=== PATIENT | female | born 1995 | race Caucasian/White ===

== ENCOUNTER 2017-01-26 15:16 | Emergency (ER) | payer MEDICAID, OTHER ==
[~2017-01-26 15:16] MED LIST: FERR325T72 PO; MEDR4PAK PO; PREN1CAP30 PO
--- NOTE | 2017-01-26 16:29 | PD ---
HPI Chief Complaint ctx Date Seen: Jan 26, 2017 Travel History International Travel<30 Days: No Contact w/Intl Traveler<30Days: No Known Affected Area: No History of Present Illness HPI 22y/o , IUP at 32.4 PNC complicated by h/o cholestasis of Patient presents c/o onset of ctx at 9am this morning. She reports she is feeling cramping and tightening about every 10 minutes. There are no aggravating or alleviating factors. There are no attempted treatments. She reports that it is normal for her to have some "tightening" throughout the day. She reports she had intercourse this morning. She denies any LOF or VB. She reports good FM. She has no other ob complaints today. Para: 2 : 3 History Past Medical History Narrative Medical Cholestasis of with each Obstetric History Obstetric History Denies STDs or abnl PAPs FT x2 Past Surgical History Surgical History: No Previous Surgery Family History Family History: Negative Social History Alcohol Use: No Tobacco Use: No Substance Abuse: No Allergies-Medications (Allergen,Severity, Reaction): Coded Allergies: No Known Allergies (Unverified , 01/23/17) Home Meds Active Scripts Methylprednisolone Dosepak (Medrol Dosepak)4 Mg Dspk4 Mg PO DIRECTED #1 DSPK Ref 0 Per Pharmacist direction Prov:Alpa Dawkins CNM [facility] 01/17/17 Ferrous Gluconate 325 Mg [id number] Mg PO DAILY #30 TAB Ref 3 Prov:Alpa Dawkins CNM [facility] 12/27/16 Without A W/Fe Fum-Fe (Provida Dha 16-16-1.25-110 mg)1 Cap Cap1 Tab PO DAILY #30 BOTTLE Ref 11 Prov:Nicky Granger [facility] 09/24/16 Discontinued Scripts Terconazole Vaginal Cream (Terazol 3 Vaginal Cream)0.8 % Cream1 Appl VAGINAL HS #20 GM Ref 0 1 applicatorful intravaginally x 3 nights Prov:Alpa Dawkins CNM [facility] 01/17/17 Review of Systems Except as stated in HPI: all other systems reviewed are Neg Physical Exam Narrative GENERAL: Well-nourished, well-developed patient. A&Ox3, NAD SKIN: Warm and dry. HEAD: Normocephalic and atraumatic. EYES: No scleral icterus. No injection or drainage. ENT: No nasal drainage noted. Mucous membranes pink. Airway patent. NECK: Supple, trachea midline. No JVD. CARDIOVASCULAR: Regular rate and rhythm without murmurs, gallops, or rubs. RESPIRATORY: Breath sounds equal bilaterally. No accessory muscle use. BREASTS: Deferred ABDOMEN/GI: Abdomen soft, non-tender, bowel sounds present, no rebound, no guarding Gravid GENITOURINARY: External Genitalia: intact and normal in appearance BUS glands: nl Cervix: closed, no cervical/vaginal masses, normal vaginal rugae Dilatation:closed Effacement: thick Station: high, posterior Membranes: [intact Uterine Contractions: initially frequent ctx but only occasionally noted after po and IV hydration. FHT's: Category: 1 Baseline: 130s Reactive:reactive Variability: moderate Decels: good accels, no decels EXTREMITIES: No cyanosis or edema. BACK: Nontender without obvious deformity. MS grossly normal ROM, gait, muscle strength Psych normal memory/affect NEUROLOGICAL: Awake and alert. Motor and sensory grossly within normal limits. Five out of 5 muscle strength in all muscle groups. Normal speech. Data Data Vital Signs Reviewed: Yes Orders Vital Signs (Adult) .ON ADMISSION (01/26/17 16:27) ^ Labor Status (01/26/17 16:27) Urinalysis - C+S If Indicated (01/26/17 16:27) Dext 5%-Nacl 0.45% 1000 Ml Inj (D5w-1/2 (01/26/17 16:27) MDM Plan A/P: 22y/o 1. IUP at 32.4 2. Cholestasis of : continue medication management as per primary Ob 3. ctx: no evidence of PRL, cervix closed/thick, unable to send FFN due to recent intercourse. Encourage good hydration. Strict PTL precatuions. 4. Possible UTI: urine culture pending, Rx macrobid 100mg BID for bacturia. Encourage good hydration. 5. wellbeing: reassuring testing with reactive NST. FHR reassuring and appropriate for gestational age. FKC daily. 6. F/U with primary Ob in 2-3d or sooner if needed Diagnosis Diagnosis: Primary Impression: 32 weeks gestation of Additional Impressions: UTI (urinary tract infection) Qualified Code: N39.0 - Urinary tract infection without hematuria, site unspecified False labor before 37 completed weeks of gestation during in third trimester, antepartum Patient Instructions: Movement (ED), Urinary Tract Infection in (ED), General Instructions, Labor (ED) Additional Instructions: Rx macrobid 100mg BID, f/u with primary OB in 2-3d or sooner if needed. call for results of urine culture. strict PTL precautions. [facility] daily. Nicky Kline MD Jan 26, 2017 16:29
--- NOTE | 2017-01-26 16:33 | PD.LABORPN ---
Subjective Subjective NST report Indications: IUP at 32.4, cholestasis of , abdominal pain Variability: moderate Other: good accels, no decels Reactive: yes Final dx: IUP at 32.4, cholestasis of , false labor, possible UTI, false labor F/U: as clinically indicated Nicky Kline MD Jan 26, 2017 16:32 Cervix: [-] Dilatation: [-] Effacement: [-] Station: [-] Presentation: [-] Membranes: [intact or ruptured] Uterine Contractions: [-] FHT's: Category: [-] Baseline: [-] Reactive: [-] Variability: [-] Decels: [-] Nicky Kline MD Jan 26, 2017 16:32 Nicky Kline MD Jan 26, 2017 16:32
[2017-01-26 16:42] LABS: BACTERIA, URINE RARE /hpf; BLOOD, URINE NEG (NEG); COMMENT (UR) CULTURE INDICATED; CULTURE IF INDICATED CULTURE INDICATED; GLUCOSE,URINE NEG (NEG); KETONE, URINE NEG (NEG); MUCUS URINE FEW /lpf (OCC); NITRITE,URINE NEG (NEG); PH, URINE 6.5 (5.0-8.5); SQUAMOUS EPITHELIAL CELL URINE 2 /hpf (0-5); URINE COLOR YELLOW (YELLW/STRAW)
[2017-01-26] MEDS ORDERED: DEXT 5%-NACL 0.45% 1000 ML INJ 1,000 ML IV SCH (17:00)
[2017-02-06] MEDS ORDERED: TERC.4%V VAGINAL (16:30)
[2017-02-20] MEDS ORDERED: SE-NCHW CHEW (09:56)
== END 2017-01-26 17:46 | disposition home or self-care (01) ==
LOC: HOBED 15:16
DX: O23.43 Unspecified infection of urinary tract in pregnancy, third trimester (principal); Z3A.32 32 weeks gestation of pregnancy
CPT/HCPCS: 59025; 81001; 87086; 96360

== ENCOUNTER 2017-02-04 11:57 | Emergency (ER) | payer OTHER ==
[~2017-02-04] VITALS: Ht 162.6 cm; Wt 76.2 kg
--- NOTE | 2017-02-04 13:14 | PD ---
HPI Chief Complaint Decreased movement, contractions Date Seen: Feb 04, 2017 (Shaye Puckett MD R1) Travel History International Travel<30 Days: No Contact w/Intl Traveler<30Days: No Known Affected Area: No (Shaye Puckett MD) History of Present Illness HPI 22 at 33/6 weeks gestation presents to the [facility] ED with a chief complaint of decreased movement. Pt states that she did not feel her baby move much this morning and when she [facility] to the [facility], her [employer] INSPECTOR noticed decreased movements on the monitor. Her is complicated by cholestasis and she is not on any medications. She gets weekly visits at the clinic. Pt denies loss of fluid and vaginal bleeding, but endorses pain and burning with urination. She was recently diagnosed with a UTI and was treated with Macrobid with the last dose today. However, her [employer]EN[employer] INSPECTOR diagnosed her with a yeast infection and gave her a vaginal cream - she continues to have itching. (Shaye Puckett MD) History Past Medical History Medical History: Denies Significant Hx (Shaye Puckett MD) Obstetric History Obstetric History -2 Fullterm vaginal deliveries, first at 39 weeks and second at 38 weeks (Shaye Puckett MD) Past Surgical History Surgical History: No Previous Surgery (Shaye Puckett MD) Family History Family History: Negative (Shaye Puckett MD) Social History Alcohol Use: No Tobacco Use: No Substance Abuse: No (Shaye Puckett MD) Allergies-Medications (Allergen,Severity, Reaction): Coded Allergies: No Known Allergies (Unverified , 02/04/17) Home Meds Active Scripts Terconazole Vaginal Supp 80 Mg Supp80 Mg VAGINAL HS #3 SUPP Ref 0 Prov:Shaye Puckett MD 02/04/17 Ursodiol 300 Mg [id number] Mg PO TID #90 CAP Ref 0 Prov:Shaye Puckett MD 02/04/17 Discontinued Scripts Ursodiol 300 Mg [id number] Mg PO TID #90 CAP Ref 0 Prov:Shaye Puckett MD 02/04/17 Review of Systems General / Constitutional: No: Fever, Chills Gastrointestinal: No: Nausea, Vomiting, Diarrhea Genitourinary: Dysuria Skin: Itching (Shaye Puckett MD R1) Physical Exam Narrative GENERAL: Well-nourished, well-developed patient. SKIN: Warm and dry. HEAD: Normocephalic and atraumatic. EYES: No scleral icterus. No injection or drainage. ENT: No nasal drainage noted. Mucous membranes pink. Airway patent. NECK: Supple, trachea midline. No JVD. CARDIOVASCULAR: Regular rate and rhythm without murmurs, gallops, or rubs. RESPIRATORY: Breath sounds equal bilaterally. No accessory muscle use. BREASTS: Bilateral exam showed no masses , no retractions, no nipple discharge. ABDOMEN/GI: Abdomen soft, non-tender, bowel sounds present, no rebound, no guarding GENITOURINARY: External Genitalia: intact and normal in appearance Cervix: Posterior Dilatation: 1-2cm Effacement: 0% Station: -3 Presentation: Cephalic Membranes: intact Uterine Contractions: present, minimal FHT's: Category: I Baseline: 155 Reactive: up to 170 Variability: Moderate Decels: 1 variable decel EXTREMITIES: No cyanosis or edema. BACK: Nontender without obvious deformity. No CVA tenderness. NEUROLOGICAL: Awake and alert. Motor and sensory grossly within normal limits. Five out of 5 muscle strength in all muscle groups. Normal speech. (EkShaye davis MD R1) Data Data Orders Vital Signs (Adult) .ON ADMISSION (02/04/17 12:44) ^ Labor Status (02/04/17 12:44) Urinalysis - C+S If Indicated (02/04/17 12:44) ^ Non Stress Test (02/04/17 12:44) ^ Hydration (02/04/17 12:44) Us Ob Bpp Wo Nst (02/04/17 12:44) (Shaye Puckett MD R1) [facility] Medical Record Reviewed: Yes Interpretation(s) 22 at 33/6 weeks gestation, pregancy complicated by acute cholestasis, presents with chief complaint of decreased movement Plan Intrauterine - tracing category I, one variable decel noted -Will send to OB diagnostics for BPP - BPP 06/03 Labor -Contractions noted on tocometer, irregular frequency -Cervical exam: 1-2cm, 0%, -3 -Will obtain Fribronectin - negative -Oral hydration Dysuria/Vaginitis -Recent history of UTI treated with macrobid -Urinalysis performed - shows moderate leukocytes, 14 WBC, and many bacteria, but with 21 squamous cells - may not be a good sample -Will wait on culture since pt has been treated with macrobid -Wet prep profile - negative Acute cholestasis -Will start Ursodiol 300mg TID ED Summary: BPP /, normal ultrasound, Pt need to have NST twice weekly and BPP once weekly with NST. Contractions minimal, irregular, and infrequent - not in active labor. Urinalysis showed moderate leukocytes, 14 WBC, and many bacteria, but with 21 squamous cells, may not be a good sample. Will defer treatment until urine culture results. Wet prep was negative. Pt was previously treated with a vaginal cream. Will recommend continued treatment. Start Ursodiol 300mg TID for cholestasis of . (Shaye Puckett MD R1) Diagnosis Diagnosis: Primary Impression: Decreased movement during in third trimester, antepartum Additional Impression: contractions Disposition: DISCHARGE HOME Condition: Stable Scripts Terconazole Vaginal Supp 80 Mg Supp80 Mg VAGINAL HS #3 SUPP Ref 0 Prov:Shaye Puckett MD R1 02/04/17 Ursodiol 300 Mg [id number] Mg PO TID #90 CAP Ref 0 Prov:Shaye Puckett MD R1 02/04/17 Collaborating MD Comments Discussed care with patient in detail. She will need twice weekly testing due to cholestasis with induction at 38 weeks gestation. Patient was started on BRODY today as she continues to have severe pruritis. (Xena Clemons MD) Shaye Puckett MD R1 Feb 04, 2017 13:14 Xena Clemons MD Feb 04, 2017 18:15
[2017-02-04] MEDS ORDERED: URSO300C2 PO ×2 (13:26→16:32)
[2017-02-04 14:05] LABS: BACTERIA, URINE MANY /hpf; BLOOD, URINE NEG (NEG); GLUCOSE,URINE NEG (NEG); HYALINE CAST, URINE 1 /lpf (RARE); KETONE, URINE NEG (NEG); MUCUS URINE FEW /lpf (OCC); NITRITE,URINE NEG (NEG); SQUAMOUS EPITHELIAL CELL URINE 21 /hpf (0-5); TRANSITIONAL EPI CELLS, URINE <1 /hpf; URINE COLOR YELLOW (YELLW/STRAW)
[2017-02-04 14:10] LABS: COMMENT (UR) CULTURE INDICATED; CULTURE IF INDICATED CULTURE INDICATED
[2017-02-04] MEDS ORDERED: LACTATED RINGER'S 1000 ML INJ 1,000 ML IV SCH (15:00)
[2017-02-04 16:04] VITALS: BP 99/58; PULSE 79
[2017-02-04 16:06] VITALS: BP 104/50; PULSE 89
[2017-02-04 16:11] VITALS: RESP 18; TEMP 97.7
[2017-02-04] MEDS ORDERED: TERC1SUP VAGINAL (18:00)
[2017-02-06] MEDS ORDERED: TERC.4%V VAGINAL (16:30)
[2017-02-20] MEDS ORDERED: SE-NCHW CHEW (09:56)
== END 2017-02-04 17:27 | disposition home or self-care (01) ==
LOC: HOBED 11:57
DX: O36.8130 Decreased fetal movements, third trimester, not applicable or unspecified (principal); O47.03 False labor before 37 completed weeks of gestation, third trimester; O26.613 Liver and biliary tract disorders in pregnancy, third trimester; K83.1 Obstruction of bile duct; O23.43 Unspecified infection of urinary tract in pregnancy, third trimester; B96.89 Other specified bacterial agents as the cause of diseases classified elsewhere; Z3A.33 33 weeks gestation of pregnancy
CPT/HCPCS: 59025; 76816; 76819; 81001; 82731; 87086; 87210; 96360; 96361

== ENCOUNTER 2017-03-02 19:42 | Inpatient (IN) | payer OTHER ==
[~2017-03-02] VITALS: Ht 162.6 cm; Wt 77.1 kg
[~2017-03-02 19:42] MED LIST changes: -FERR325T72 PO; -MEDR4PAK PO; -PREN1CAP30 PO; +SE-NCHW CHEW; +URSO300C2 PO
--- NOTE | 2017-03-02 21:19 | HHI.HP ---
HPI Chief Complaint Scheduled Induction Date Seen: March 02, 2017 Time Seen: 20:45 Travel History International Travel<30 Days: No Contact w/Intl Traveler<30Days: No Known Affected Area: No History of Present Illness HPI 22 y/o , IUP at 37.0 records reviewed and PNC complicated by: cholestasis of , [place] Patient presents for scheduled IOL as recommended by MFM at 37w. She reports good FM. She denies any LOF or VB. She denies any regular or painful ctx. She has no other complaints tonight except she is requesting to eat as she was "too nervous" to eat prior to coming to the hospital. Para: 2 : 3 Miscarriage: 0 : 0 History Past Medical History Narrative Medical Cholestasis of with this and prior Obstetric History Obstetric History FT x2 Menarche at 12 Menses q month menses last 6d Denies h/o abnl PAPs or STD Past Surgical History Surgical History: No Previous Surgery Family History Narrative Family History Epilepsy (father) Social History Alcohol Use: No Tobacco Use: No Substance Abuse: No Allergies-Medications (Allergen,Severity, Reaction): Coded Allergies: No Known Allergies (Unverified , 03/02/17) Home Meds Active Scripts Ursodiol 300 Mg [id number] Mg PO TID #90 CAP Ref 0 Prov:Shaye Puckett MD R1 02/04/17 Reported Medications Vit W/ Ferrous Fumara Chew (Se- 19 29-1 mg Chew)1 Chew1 Tab CHEW DAILY Ref 0 02/20/17 Review of Systems General / Constitutional: No: Fever, Weight Gain, Weight Loss, Chills, Other Eyes: No: Diploplia, Blurred Vision, Visual changes, Pain, Photophobia, Other HENT: No: Headaches, Vertigo, Dental Difficulties, Lightheadedness, Other Cardiovascular: No: Irregular Rhythm, Chest Pain or Discomfort, Palpitations, Tachycardia, Syncope, Varicosities, Edema, Cyanosis, Other Respiratory: No: Cough, Short of Breath, Wheezing, Other Gastrointestinal: No: Nausea, Vomiting, Diarrhea, Abdominal Pain, Hematemesis, Hematochezia, Constipation, Changes in Bowel Habits, Indigestion, Loss of Appetite, Other Genitourinary: No: Urgency, Frequency, Dysuria, Nocturia, Hematuria, Decreased Urinary Output, Oliguria, Hesitancy, Dribbling, Incontinence, Pelvic Pain, Dyspareunia, Discharge, Menorrhagia, Vaginal Bleeding, Other Musculoskeletal: No: Limited ROM, Weakness, Cramping, Edema, Pain, Other Skin: No Rash, Itching, No Dryness, No Lumps, No Change in Pigmentation, No Change in Nails, No Alopecia, No Lesions, No Breast Lumps, No Breast Tenderness , No Breast Swelling, No Other Neurologic: No: Weakness, Dizziness, Syncope, Focal Abnormalities, Coordination Problem, Headache, Slurred Speech, Seizures, Other Psychiatric: No: Anxiety, Depression, Suicidal Ideations, Disorder of Thought, Mood Disorder, Substance Abuse, Homicidal Ideation, Other Endocrine: No: Heat Intolerance, Cold Intolerance, Polydipsia, Polyuria, Other Hematologic/Lymphatic: No Easy Bruising, No Lymph Node Enlargement, No Other Physical Exam VSS AF Narrative GENERAL: Well-nourished, well-developed patient. SKIN: Warm and dry. HEAD: Normocephalic and atraumatic. EYES: No scleral icterus. No injection or drainage. ENT: No nasal drainage noted. Mucous membranes pink. Airway patent. NECK: Supple, trachea midline. No JVD. CARDIOVASCULAR: Regular rate and rhythm without murmurs, gallops, or rubs. RESPIRATORY: Breath sounds equal bilaterally. No accessory muscle use. BREASTS: Bilateral exam showed no masses , no retractions, no nipple discharge. ABDOMEN/GI: Abdomen soft, non-tender, bowel sounds present, no rebound, no guarding Gravid GENITOURINARY: External Genitalia: intact and normal in appearance BUS glands: normal Cervix: no cervical/vaginal masses noted Dilatation: 1-2 Effacement: 25% Station: -3 Presentation: posterior. Presentation confirmed cephalic on US Membranes: [intact Uterine Contractions: [-] FHT's: Category: 1 Baseline: 140s Reactive: yes Variability: [moderate LTV-] Decels: no decels, good accels EXTREMITIES: No cyanosis or edema. BACK: Nontender without obvious deformity. No CVA tenderness. NEUROLOGICAL: Awake and alert. Motor and sensory grossly within normal limits. Five out of 5 muscle strength in all muscle groups. Normal speech. MS: grossly normal ROM, gait, muscle strength Psych grossly normal memory/affect Data Data Vital Signs Reviewed: Yes Assessment/Plan Assessment and Plan A/P: 22y/o 1. IUP at 37.0 2. Cholestasis of : admit for scheduled IOL at term as per FMFM. Discussed RBA of IOL including but not limited to increased risk of C/S, other complications. Discussed risks of , risks/indications of C/S including but not limited to pain, infection, bleeding, injury to other organs (bladder, bowels, nerves, vessels) and baby, repeat operation, hysterectomy (rare), wound infection/breakdown, and other complications. All questions answered, consent signed. Discussed with patient our goal is a healthy and mother and will reserve C/S for maternal or indications. Discussed in brief methods of IOL. Patietn requested a meal, so will delay start of IOL until after meal. 3. Sikh: lengthy nonconfrontational discussion with patient and about blood transfusions and risks of refusal, including in the event a life-saving transfusion is needed. Patient stated she would rather than have a blood transfusion, even for life-saving purposes 4. GBS neg 5. wellbeing: reassuring testing, FHR appropriate and reassuring for gestational age, continue EFM. 6. O+/RI 7. Other labs reviewed and neg (HIV, HbsAG, GC/Chlam, RPR), 1h 114 8. Patient notified of participation in [employer] and compensation if neurological injury related to . Nicky Kline MD March 02, 2017 21:19
[2017-03-02] MEDS ORDERED: LACTATED RINGER'S 1000 ML INJ 1,000 ML IV PRN (21:33)
[2017-03-02] MEDS ORDERED: LIDOCAINE HCL 1% 50 ML VIAL INFIL PRN (21:45)
[2017-03-02] MEDS ORDERED: LIDOCAINE HCL 1% 50 ML VIAL I-DERMAL PRN (21:45)
[2017-03-02] MEDS ORDERED: CITRIC ACID-SODIUM CITRATE LIQ 30 ML UDC PO SCH (21:45)
[2017-03-02] MEDS ORDERED: MINERAL OIL 10 ML VIAL TOPICAL PRN (21:45)
[2017-03-02] MEDS ORDERED: SODIUM CHLORID 0.9% 500 ML INJ 500 ML IV PRN (21:45)
[2017-03-02] MEDS ORDERED: OXYTOCIN 30 UNITS-500ML PREMIX 500 ML IV ONE (21:45)
[2017-03-02 21:46] LABS: AUTOMATED NEUTROPHIL # 3.6 TH/MM3 (1.8-7.7); BASOPHIL % 0.5 % (0.0-2.0); EOSINOPHIL % 0.1 % (0.0-4.0); HEMATOCRIT 29.6 % (35.0-46.0); HEMO FLAGS DIFF FINAL; LYMPH % 34.2 % (9.0-44.0); LYMPHOCYTE # 2.3 TH/MM3 (1.0-4.8); MEAN CELL VOLUME 86.3 FL (80.0-100.0); MEAN CORPUSCULAR HEMOGLOBIN 28.4 PG (27.0-34.0); MEAN CORPUSCULAR HGB CONC 32.9 % (32.0-36.0); MONO % 10.7 % (0.0-8.0); NEUT % 54.5 % (16.0-70.0); PLATELET COUNT 151 TH/MM3 (150-450); RED BLOOD COUNT 3.43 MIL/MM3 (4.00-5.30); WHITE BLOOD COUNT 6.7 TH/MM3 (4.0-11.0)
[2017-03-02 21:51] LABS: BLOOD, URINE NEG (NEG); COMMENT (UR) CULT NOT INDICATED; CULTURE IF INDICATED CULT NOT INDICATED; GLUCOSE,URINE NEG (NEG); HYALINE CAST, URINE 1 /lpf (RARE); KETONE, URINE NEG (NEG); MUCUS URINE FEW /lpf (OCC); NITRITE,URINE NEG (NEG); PH, URINE 6.5 (5.0-8.5); SQUAMOUS EPITHELIAL CELL URINE 4 /hpf (0-5); URINE COLOR LIGHT-YELLOW (YELLW/STRAW)
[2017-03-02] MEDS ORDERED: SODIUM CHLOR 0.9% 1000 ML INJ 1,000 ML IV PRN (21:53)
[2017-03-02 22:15] VITALS: RESP 18
[2017-03-02 22:20] VITALS: BP 122/69; PULSE 88
[2017-03-02 22:21] LABS: AMPHETAMINE, URINE NEG (NEG); BARBITURATES, URINE NEG (NEG); COCAINE, URINE NEG (NEG)
[2017-03-02 22:30] VITALS: TEMP 98
[2017-03-02] MEDS ORDERED: SODIUM CHLOR 0.9% 1000 ML INJ 1,000 ML OTHER PRN (23:21)
[2017-03-02] MEDS ORDERED: MISOPROSTOL 25 MCG SUPP VAGINAL ONE (23:30)
[2017-03-02] MEDS ORDERED: OXYTOCIN 30 UNITS-500ML PREMIX 500 ML IV SCH (23:30)
[2017-03-03] VITALS (49 sets, daily range): BP systolic 98–131; BP diastolic 40–90; PULSE 16–230; RESP 16–18; TEMP 97.7–98.6; O2SAT 99–100
[2017-03-03] MEDS ORDERED: ONDANSETRON HCL 4 MG/2 ML VIAL IV PUSH PRN (01:15)
[2017-03-03] MEDS ORDERED: ZOLPIDEM TARTRATE 5 MG TAB PO PRN ×2 (01:15→14:45)
[2017-03-03] MEDS ORDERED: hydrOXYzine PAMOATE 25 MG CAP PO PRN (01:30)
[2017-03-03] MEDS: LACTATED RINGER'S 1000 ML INJ 1,000 ML IV SCH ×2 (02:00→05:36)
[2017-03-03] MEDS ORDERED: MISOPROSTOL 25 MCG SUPP VAGINAL PRN (03:30)
--- NOTE | 2017-03-03 07:01 | PD.LABORPN ---
Subjective Subjective Ms. Plata reports that she is doing well right now without complaints. Per nursing documentation: Patient with occasional variable decelerations at ~ 0322; patient turned to LL position with improvement in tracing Cyotec 25mcg placed at 0202 and 0628. Objective Vital Signs Vital Signs Date Time Temp Pulse Resp B/P Pulse Ox O2 Delivery O2 Flow Rate FiO2 03/03/17 06:36 18 03/03/17 06:32 75 119/68 03/03/17 05:37 98.0 18 03/03/17 05:36 84 112/68 03/03/17 02:10 98.2 03/03/17 02:06 18 03/03/17 02:05 106/56 03/03/17 02:05 79 03/03/17 00:43 98.6 106 18 116/90 Objective Pelvic Exam: (Exam 0610 per nursing staff) Cervix: Dilatation: 1-2cm Effacement: 20% Station: -2 Membranes: Intact Uterine Contractions: q3 minutes FHT's: Category: 1 Baseline: 130 Reactive: Y Variability: Mod Decels: None Assessment/Plan Assessment and Plan 22y/o at 37 weeks GA with PMH Cholestasis, GBS negative. Regarding post- management- refuses blood products. -Continue to monitor EFM -Continue cervical ripening with Cytotec -IOL Don Morales MD R2 March 03, 2017 07:01
[2017-03-03] MEDS ORDERED: SODIUM CHLORIDE 0.9% FLUSH 10 ML FLUSH IV FLUSH SCH ×2 (09:00→21:00)
--- NOTE | 2017-03-03 09:26 | PD.LABORPN ---
Subjective Subjective OBHG S": patient reports increased ctx O: VSS AF FHT: 120s, moderate LTV, good accels, no decels [place]: difficult to assess SVE: 4/80/-2 A/P: 1. IUP at 37.1 2. IOL for cholestasis of : s/p cytotec x2, will start oxytocin as appropriate 3. GBS neg 4. Anemia: Hgb 9.7, refuses life saving blood transfusion 5. FHR reassuring, continue EFM Objective Vital Signs Vital Signs Date Time Temp Pulse Resp B/P Pulse Ox O2 Delivery O2 Flow Rate FiO2 03/03/17 09:05 77 03/03/17 09:02 230 18 114/75 03/03/17 08:55 100 03/03/17 08:50 100 03/03/17 08:45 100 03/03/17 08:40 82 03/03/17 08:35 77 03/03/17 08:30 77 03/03/17 08:22 92 102/40 03/03/17 08:20 18 03/03/17 07:12 97.7 16 03/03/17 07:10 80 113/77 03/03/17 06:36 18 03/03/17 06:32 75 119/68 03/03/17 05:37 98.0 18 03/03/17 05:36 84 112/68 03/03/17 02:10 98.2 03/03/17 02:06 18 03/03/17 02:05 106/56 03/03/17 02:05 79 Objective Pelvic Exam: Cervix: [-] Dilatation: [-] Effacement: [-] Station: [-] Presentation: [-] Membranes: [intact or ruptured] Uterine Contractions: [-] FHT's: Category: [-] Baseline: [-] Reactive: [-] Variability: [-] Decels: [-] Nicky Kline MD March 03, 2017 09:26
[2017-03-03 10:26] LABS: ALKALINE PHOSPHATASE 257 U/L (45-117); ALT (GPT) 16 U/L (10-53); ANION GAP 11 MEQ/L (5-15); AST (GOT) 16 U/L (15-37); BICARBONATE 22.1 MEQ/L (21.0-32.0); BLOOD UREA NITROGEN 8 MG/DL (7-18); CHLORIDE 105 MEQ/L (98-107); GLOMERULAR FILTRATION RATE 103 ML/MIN (>89); POTASSIUM 3.8 MEQ/L (3.5-5.1); SODIUM (NA) 138 MEQ/L (136-145); TOTAL BILIRUBIN ADULT 0.2 MG/DL (0.2-1.0)
[2017-03-03] MEDS ORDERED: MISOPROSTOL 200 MCG TAB ONE (10:30)
--- NOTE | 2017-03-03 14:28 | PD.OB.DELI ---
Delivery Date: March 03, 2017 Anesthesia: None Episiotomy: None Vaginal Delivery: Normal Presentation: Occiput anterior Nuchal Cord: x1 Delayed cord clamping (45 sec): Yes : Female One Minute : 8 Five Minute : 9 Weight: 3045g Placenta: Spontaneous delivery, Intact, 3 vessel cord Laceration: No lacerations Mark Lal MD R1 March 03, 2017 14:28
[2017-03-03] MEDS ORDERED: KETOROLAC TROMETHAMINE 60 MG/2 ML (IM) VIAL IM ONE (14:40)
[2017-03-03] MEDS ORDERED: WITCH HAZEL 50%/GLYCERIN 12.5% 40 PAD JAR TOPICAL PRN (14:45)
[2017-03-03] MEDS ORDERED: DOCUSATE SODIUM 50 MG/SENNA 8.6 MG TAB PO PRN (14:45)
[2017-03-03] MEDS ORDERED: oxyCODONE/ACETAMINOPHEN 5 MG/325 MG TAB PO PRN ×2 (14:45)
[2017-03-03] MEDS ORDERED: KETOROLAC TROMETHAMINE 30 MG/ML (IVP) VIAL IV PUSH ONE (14:45)
[2017-03-03] MEDS ORDERED: BENZOCAINE 20% TOPICAL SPRAY 60 ML CAN TOPICAL PRN (14:45)
[2017-03-03] MEDS ORDERED: SODIUM CHLORIDE 0.9% FLUSH 10 ML FLUSH IV FLUSH PRN (14:45)
[2017-03-03] MEDS ORDERED: ONDANSETRON ODT 4 MG TAB PO PRN (14:45)
[2017-03-03] MEDS ORDERED: ALUMINUM/MAGNESIUM/SIMETH 30 ML CUP PO PRN (14:45)
--- NOTE | 2017-03-03 15:13 | PD.LABORPN ---
Subjective Subjective OB attending note This patient delivered vaginally over intact perineum without complication, baby weight 3045 gm 8/9.loose nuchal cord noted , placenta out spontaneously intact , no laceration , EBL 100 cc , resident did delivery and did a good job Objective Vital Signs Vital Signs Date Time Temp Pulse Resp B/P Pulse Ox O2 Delivery O2 Flow Rate FiO2 03/03/17 15:05 18 03/03/17 15:01 80 125/71 03/03/17 14:54 112 126/68 03/03/17 14:50 18 03/03/17 14:35 18 03/03/17 14:32 99 131/70 03/03/17 14:23 101 120/70 03/03/17 13:30 97.7 03/03/17 13:29 103 111/65 03/03/17 13:25 18 03/03/17 11:37 18 03/03/17 11:35 82 116/72 03/03/17 10:32 97.9 81 18 105/51 03/03/17 09:55 78 03/03/17 09:50 77 03/03/17 09:45 82 03/03/17 09:40 80 03/03/17 09:35 75 03/03/17 09:30 76 03/03/17 09:25 76 03/03/17 09:20 100 03/03/17 09:20 89 03/03/17 09:15 100 03/03/17 09:15 77 03/03/17 09:05 99 03/03/17 09:05 77 03/03/17 09:02 230 18 114/75 03/03/17 08:55 100 03/03/17 08:55 84 03/03/17 08:50 84 03/03/17 08:50 100 03/03/17 08:45 100 03/03/17 08:45 80 03/03/17 08:40 82 03/03/17 08:35 77 03/03/17 08:30 77 03/03/17 08:22 92 102/40 03/03/17 08:20 18 03/03/17 07:12 97.7 16 Objective Sammy Zuniga II, MD March 03, 2017 15:13
[2017-03-03] MEDS ORDERED: DIPHTH/TETANUS/ACEL PERTUSSIS (BOOSTER) 0.5 ML VIAL/PFS IM ONE (16:00)
[2017-03-03] MEDS ORDERED: MEASLES, MUMPS, RUBELLA VACCINE 0.5 ML VIAL SQ ONE (16:00)
[2017-03-03] MEDS: ACETAMINOPHEN 325 MG TAB PO PRN ×2 (19:34→23:29)
[2017-03-03] MEDS: IBUPROFEN 600 MG TAB PO PRN (23:30)
[2017-03-04] MEDS: ACETAMINOPHEN 325 MG TAB PO PRN ×2 (05:37→12:31)
[2017-03-04] MEDS: IBUPROFEN 600 MG TAB PO PRN ×3 (05:37→20:25)
--- NOTE | 2017-03-04 07:19 | HHI.OB ---
Subjective Post Day: 1 Remarks day #1. AFVSS overnight. Pain minimal. Decreased lochia. Denies dysuria. No breast tenderness. She is feeding the baby via breast/bottle. Appetite good. No nausea or vomiting. Endorses flatus. No bowel movement. Ambulating well. Denies calf pain, shortness of breath, or cough. Otherwise, she is doing well this morning and has no other complaints. Objective Vitals/I&O Vital Signs Date Time Temp Pulse Resp B/P Pulse Ox O2 Delivery O2 Flow Rate FiO2 03/03/17 20:15 98.1 16 03/03/17 20:15 100 03/03/17 20:15 76 115/66 03/03/17 17:07 82 03/03/17 17:07 16 16 98/57 03/03/17 17:07 98.2 03/03/17 15:42 72 109/58 03/03/17 15:41 18 03/03/17 15:20 18 03/03/17 15:16 82 118/65 03/03/17 15:13 98.0 03/03/17 15:05 18 03/03/17 15:01 80 125/71 03/03/17 14:54 112 126/68 03/03/17 14:50 18 03/03/17 14:35 18 03/03/17 14:32 99 131/70 03/03/17 14:23 101 120/70 03/03/17 13:30 97.7 03/03/17 13:29 103 111/65 03/03/17 13:25 18 03/03/17 11:37 18 03/03/17 11:35 82 116/72 03/03/17 10:32 97.9 81 18 105/51 03/03/17 09:55 78 03/03/17 09:50 77 03/03/17 09:45 82 03/03/17 09:40 80 03/03/17 09:35 75 03/03/17 09:30 76 03/03/17 09:25 76 03/03/17 09:20 100 03/03/17 09:20 89 03/03/17 09:15 100 03/03/17 09:15 77 03/03/17 09:05 99 03/03/17 09:05 77 03/03/17 09:02 230 18 114/75 03/03/17 08:55 100 03/03/17 08:55 84 03/03/17 08:50 84 03/03/17 08:50 100 03/03/17 08:45 100 03/03/17 08:45 80 03/03/17 08:40 82 03/03/17 08:35 77 03/03/17 08:30 77 03/03/17 08:22 92 102/40 03/03/17 08:20 18 Objective Remarks GENERAL: Well-nourished, well-developed patient. CARDIOVASCULAR: Regular rate and rhythm without murmurs, gallops, or rubs. RESPIRATORY: Breath sounds equal bilaterally. No accessory muscle use. ABDOMEN/GI: Abdomen soft, non-tender. Fundus: Firm, non-tender at umbilicus. GENITOURINARY: Light bleeding. EXTREMITIES: No cyanosis or edema, non-tender, without signs of DVT. Medications and IVs Current Medications Medications (Trade) Dose Ordered Sig/Hiram Route Start Time Stop Time Status Last Admin (NS Flush) 2 ml BID IV FLUSH 03/03/17 21:00 (NS Flush) 2 ml UNSCH PRN IV FLUSH 03/03/17 14:45 (Tylenol) 650 mg Q4H PRN PO 03/03/17 14:45 03/04/17 05:37 (Motrin) 600 mg Q6H PRN PO 03/03/17 14:45 03/04/17 05:37 (Percocet 5-325 Mg) 1 tab Q4H PRN PO 03/03/17 14:45 (Percocet 5-325 Mg) 2 tab Q4H PRN PO 03/03/17 14:45 (Americaine 20% Top Spr) 1 spray Q4H PRN TOPICAL 03/03/17 14:45 (Tucks Pads) 1 applic QID PRN TOPICAL 03/03/17 14:45 (Alma-Colace) 2 tab Q12H PRN PO 03/03/17 14:45 (Ambien) 5 mg HS PRN PO 03/03/17 14:45 (Mag-Al Plus Susp Liq) 15 ml Q8H PRN PO 03/03/17 14:45 (Zofran Odt) 4 mg Q6H PRN PO 03/03/17 14:45 Assessment/Plan Assessment and Plan 22y/o who is PPD#1 s/p . -Continue routine care. -Percocet and Motrin PRN pain. -Encouraged OOB. Advised pelvic rest for 6 wks. -Will need a f/u appt. within 6 wks. -D/c in 1-2 more days. Mark Lal MD R1 March 04, 2017 07:19
[2017-03-05] MEDS: IBUPROFEN 600 MG TAB PO PRN (05:54)
[2017-03-05] MEDS ORDERED: SENN1TAB PO (07:16)
[2017-03-05] MEDS ORDERED: IBUP-232 PO (07:16)
--- NOTE | 2017-03-05 07:17 | HHI.DCPOC ---
Discharge Care Plan Diagnosis: (1) Spontaneous vaginal delivery (2) Normal , repeat Report Symptoms to Your Doctor -Temperate above 100.5 degrees -Redness, of incision or excessive or foul smelling drainage -Unusual pain or calf pain -Increased vaginal bleeding -Painful or difficulty urinating -Feelings of extreme sadness or anxiety after 2 weeks Goals to Promote Your Health * To prevent worsening of your condition and complications * To maintain your health at the optimal level Directions to Meet Your Goals Take your medications as prescribed Follow your dietary instruction Follow activity as directed Ensure plenty of rest for recovery Drink fluids for hydration Keep your appointments as scheduled Take your immunizations and boosters as scheduled If your symptoms worsen call your PCP, if no PCP go to Urgent Care Center or Emergency Room Smoking is Dangerous to Your Health. Avoid second hand smoke Call the 24-hour crisis hotline for domestic abuse at Mark Lal MD R1 March 05, 2017 07:17
--- NOTE | 2017-03-05 07:21 | HHI.OB ---
Subjective Post Day: 2 Remarks day #2. AFVSS overnight. Pain well controlled with Motrin. Decreased lochia. Denies dysuria. No breast tenderness. She is feeding the baby via breast/bottle. Appetite good. No nausea or vomiting. Endorses flatus. Endorses bowel movement. Ambulating well. Denies calf pain, shortness of breath, or cough. Otherwise, she is doing well this morning and has no other complaints. (Mark Lal MD R1) Objective Objective Remarks GENERAL: Well-nourished, well-developed patient. CARDIOVASCULAR: Regular rate and rhythm without murmurs, gallops, or rubs. RESPIRATORY: Breath sounds equal bilaterally. No accessory muscle use. ABDOMEN/GI: Abdomen soft, non-tender. Fundus: Firm, non-tender at umbilicus. GENITOURINARY: Light bleeding. EXTREMITIES: No cyanosis or edema, non-tender, without signs of DVT. Medications and IVs Current Medications Medications (Trade) Dose Ordered Sig/Hiram Route Start Time Stop Time Status Last Admin (NS Flush) 2 ml BID IV FLUSH 03/03/17 21:00 (NS Flush) 2 ml UNSCH PRN IV FLUSH 03/03/17 14:45 (Tylenol) 650 mg Q4H PRN PO 03/03/17 14:45 03/04/17 12:31 (Motrin) 600 mg Q6H PRN PO 03/03/17 14:45 03/05/17 05:54 (Percocet 5-325 Mg) 1 tab Q4H PRN PO 03/03/17 14:45 (Percocet 5-325 Mg) 2 tab Q4H PRN PO 03/03/17 14:45 (Americaine 20% Top Spr) 1 spray Q4H PRN TOPICAL 03/03/17 14:45 (Tucks Pads) 1 applic QID PRN TOPICAL 03/03/17 14:45 (Alma-Colace) 2 tab Q12H PRN PO 03/03/17 14:45 (Ambien) 5 mg HS PRN PO 03/03/17 14:45 (Mag-Al Plus Susp Liq) 15 ml Q8H PRN PO 03/03/17 14:45 (Zofran Odt) 4 mg Q6H PRN PO 03/03/17 14:45 (Mark Lal MD R1) Assessment/Plan Assessment and Plan 22y/o who is PPD#2 s/p . -Continue routine care. -Percocet and Motrin PRN pain. -Encouraged OOB. Advised pelvic rest for 6 wks. -Will need a f/u appt. within 6 wks. -D/c today (Mark Lal MD R1) Attending Attestation The exam, history, and the medical decision-making described in the above note were completed with the assistance of the resident provider. I reviewed and agree with the findings presented. I attest that I had a [id number] encounter with the patient on the same day, and personally performed and documented my assessment and findings in the medical record. (Tomas Harp MD) Mark Lal MD R1 March 05, 2017 07:21 Tomas Harp MD March 05, 2017 08:54
[2017-03-05 14:35] LABS: BATH SALTS (MDPV) UR NEG (NEG); ECSTASY (MDMA) UR NEG (NEG); GABAPENTIN UR NEG (NEG); HEROIN (6-ACETYLMORPHINE) UR NEG (NEG); K2 SPICE UR NEG (NEG); OBMETHADONE UR NEG (NEG); OXYCODONE (PERCODAN) NEG (NEG); PHENCYCLIDINE URINE NEG (NEG)
[2017-03-05 14:36] LABS: HYDROMORPHONE U NEG (NEG)
== END 2017-03-05 14:41 | disposition home or self-care (01) | DRG 775 ==
LOC: H2EB 19:42 → H1EA 03-03 15:55
PROVIDERS: ADMIT Obstetrics & Gynecology; ATTEND Obstetrics & Gynecology
PROC: 10E0XZZ Delivery of Products of Conception, External Approach (ICD-10-PCS; principal; 2017-03-02)
DX: O76 Abnormality in fetal heart rate and rhythm complicating labor and delivery (principal); K83.1 Obstruction of bile duct; O26.62 Liver and biliary tract disorders in childbirth; Z37.0 Single live birth; D64.9 Anemia, unspecified; O99.02 Anemia complicating childbirth; O69.81X0 Labor and delivery complicated by cord around neck, without compression, not applicable or unspecified; Z3A.37 37 weeks gestation of pregnancy
CPT/HCPCS: 80053; 80307; 81001; 85025; 90715; G0481; J1885; J7120